=== PATIENT | male | born 1995 | race Caucasian/White ===

== ENCOUNTER 2023-03-03 12:43 | Emergency (ER) | payer BC, SELFPAY ==
[2023-03-03 12:59] VITALS: BP 134/85; PULSE 123; RESP 20; TEMP 37.5; O2SAT 99
--- NOTE | 2023-03-03 13:51 | ED.GENADULT ---
HPI - General Adult General Chief complaint: Back Pain/Injury Stated complaint: right flank pain Time Seen by Provider: 03/03/23 13:42 Source: patient Mode of arrival: ambulatory Limitations: no limitations History of Present Illness HPI narrative: Patient presents today complaining of right flank pain since x3 hours. States severe pain lasted 1 hour, then has dropped down to a dull ache since that time. States the pain removed from the flank down to the right lower quadrant/groin area. Patient reports his urine was very dark last night and has lightened up some today. Denies dysuria, gross hematuria, frequency or urgency, nausea or vomiting. He currently rates his pain 11/01. He took 400 mg of ibuprofen at 11:00 a.m. without relief. Denies history of kidney stones or pyelonephritis. Related Data Allergies Allergy/AdvReac Type Severity Reaction Status Date / Time RAISINS Allergy Intermediate HIVES/RASH Uncoded 12/08/11 18:30 Review of Systems Review of Systems: CONSTITUTIONAL: Denies body aches, fever, chills, or sweats. EYES: Denies visual changes, redness, or discharge. ENT: Denies rhinorrhea, congestion, sore throat, or otalgia. CARDIOVASCULAR: Denies chest pain, palpitations, or edema. RESPIRATORY: Denies cough or dyspnea. GASTROINTESTINAL: Denies abdominal pain, nausea, vomiting, or diarrhea.+ right flank pain GENITOURINARY: Denies dysuria or hematuria. SKIN: Denies rash, itching, or wounds. MUSCULOSKELETAL: Denies back pain, joint pain, or myalgia. NEUROLOGIC: Denies headache, numbness, tingling, or weakness. PSYCH: Denies depression or anxiety. PMFSH Comments At time of signature, I have reviewed and agree with nursing past medical, surgical, social and family history unless otherwise noted. Please see nursing chart for further information. There is no relevant family history pertinent to the presenting complaint Exam Narrative: GENERAL: Well-appearing, well-nourished, and in no acute distress. HEAD: Normocephalic, atraumatic. EYES: EOMI. No redness or drainage. Conjunctivae normal. ENT: Mucous membranes pink and moist. NECK: Normal AROM.. CHEST: No respiratory distress. Clear to auscultation. HEART: Regular rate and rhythm. No murmur appreciated. Normal peripheral pulses. ABDOMEN: Soft, nondistended, normal active bowel sounds. Tenderness from the right flank extending to the right lower quadrant/groin area. No rebound or guarding. EXTREMITIES: Normal range of motion. No edema. SKIN: Warm, dry, no rash. Capillary refill normal. Normal skin turgor. NEURO: No focal deficits. Alert and oriented x3. Gait steady. PSYCH: Normal affect. No signs of depression or anxiety. Course Course Level of Care: Express Care Visit Vital Signs Vital signs: Vital Signs Temperature 99.5 F 03/03/23 12:59 Pulse Rate 123 H 03/03/23 12:59 Respiratory Rate 20 03/03/23 12:59 Blood Pressure 134/85 03/03/23 12:59 Pulse Oximetry 99 03/03/23 12:59 Oxygen Delivery Room Air 03/03/23 12:59 Temperature 99.5 F 03/03/23 12:59 Pulse Rate 123 H 03/03/23 12:59 Respiratory Rate 20 03/03/23 12:59 Blood Pressure 134/85 03/03/23 12:59 Pulse Oximetry 99 03/03/23 12:59 Oxygen Delivery Room Air 03/03/23 12:59 Reviewed. Pt has been instructed to follow up with his PCP regarding his elevated blood pressure today. Medical Decision Making MDM Narrative Medical decision making narrative: History, exam, and urinalysis support diagnosis of kidney stone. History supports that stone has moved to the distal urethra, or possibly into the bladder at this point. Will place patient on Flomax and Toradol and give him a strainer for home use. Patient understands that if symptoms worsen he may go to the ER for further evaluation. At this time, x-ray is unavailable at this location to obtain films but I don't feel they are necessary as stone seems to be moving. Differential Diagnosis Differential D
== END 2023-03-03 14:06 | disposition home or self-care (01) ==
PROVIDERS: Emergency Provider Nurse Practitioner
DX: N20.0 Calculus of kidney (principal)
CPT/HCPCS: 81003; 87086; 99213; G0463